=== PATIENT | male | born 1990 | race Caucasian/White ===

== ENCOUNTER 2016-11-17 13:43 | Emergency (ER) | payer MEDICAID ==
[2016-11-17 13:59] VITALS: BP 115/72; PULSE 95; RESP 18; TEMP 98.8; O2SAT 99
[2016-11-17] MEDS ORDERED: Bacitracin 500 Units/gm Oint Foilpak UD TOP ONE (14:14)
[2016-11-17] MEDS ORDERED: Bacitracin 500 Units/gm Oint Foilpak UD ONE ×2 (14:32→14:41)
[2016-11-17] MEDS ORDERED: Amoxicillin-Clav 875-125 mg Tab PO STA (14:33)
[2016-11-17] MEDS ORDERED: Amoxicillin-Clav 875-125 mg Tab PO ONE (14:44)
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
== END 2016-11-17 15:45 | disposition home or self-care (01) ==
LOC: C.ER 13:43
DX: S01.01XA Laceration without foreign body of scalp, initial encounter (principal); Y04.0XXA Assault by unarmed brawl or fight, initial encounter; S21.151A Open bite of right front wall of thorax without penetration into thoracic cavity, initial encounter; Y04.1XXA Assault by human bite, initial encounter
CPT/HCPCS: 12001; 90471; 90715; 96372; 99284; J1885

== ENCOUNTER 2017-01-29 16:33 | Emergency (ER) | payer MEDICAID ==
[2017-01-29 16:40] VITALS: BP 115/63; PULSE 76; RESP 18; TEMP 98.2; O2SAT 98
[2017-01-29] MEDS ORDERED: Tmp-Smz 800 mg-160 mg DS Tab PO STA (17:32)
[2017-01-29] MEDS ORDERED: Tmp-Smz 800 mg-160 mg DS Tab ONE (17:36)
--- NOTE | 2017-01-29 18:03 | C.PDOC ---
History Of Present Illness 26 year old male presents to the ED with complaints of left middle mcguire swelling around the nail for three days. Patient reports he pulled his cuticle and had swelling and pain beginning soon after. He took ibuprofen for pain. Patient denies fever, numbness, or tingling of the left middle finger. Chief Complaint (Nursing): Finger,Hand,&Wrist History Per: Patient History/Exam Limitations: no limitations Onset/Duration Of Symptoms: Days (3 days ) Current Symptoms Are (Timing): Still Present Quality: "Pain" Exacerbating Factor(s): Nothing Recent travel outside of the [place]: No Past Medical History Reviewed: Historical Data, Nursing Documentation, Vital Signs Vital Signs: Last Vital Signs Temp 98.2 F 01/29/17 16:37 Pulse 76 01/29/17 16:37 Resp 18 01/29/17 16:37 BP 115/63 01/29/17 16:37 Pulse Ox 98 01/29/17 19:04 Family History: States: Unknown Family Hx - Social History Hx Tobacco Use: No Hx Alcohol Use: No Hx Substance Use: Yes - Immunization History Hx Tetanus Toxoid Vaccination: No Hx Influenza Vaccination: No Hx Pneumococcal Vaccination: No Review Of Systems Constitutional: Negative for: Fever Musculoskeletal: Positive for: Hand Pain (left middle finger swelling and pain ) Neurological: Negative for: Weakness, Numbness Physical Exam - Physical Exam Appears: Non-toxic, No Acute Distress Skin: Warm, Dry Head: Atraumatic, Normacephalic Extremity: Normal ROM, Capillary Refill (good capillary refill, less than two seconds ), Other (mild paronychia to the left third digit) Pulses: Left Radial: Normal, Right Radial: Normal Neurological/Psych: Oriented x3 ED Course And Treatment O2 Sat by Pulse Oximetry: 98 (RA) Progress Note: Patient was given Keflex, Motrin, and Bactrim was applied. Patient was given follow up instructions. Disposition - Disposition Referrals: [facility] [Outside] [facility] at [facility] [Outside] Disposition: HOME/ ROUTINE Disposition Time: 17:35 Condition: GOOD Additional Instructions: Thank you for letting us take care of you today. Your provider was Dr. Funez. You were treated for paronychia. The emergency medical care you received today was directed at your acute symptoms. If you were prescribed any medication, please fill it and take as directed. It may take several days for your symptoms to resolve. Return to the Emergency Department if your symptoms worsen, do not improve, or if you have any other problems. Please contact your doctor or call one of the physicians/clinics you have been referred to that are listed on the Patient Visit Information form that is included in your discharge packet. Bring any paperwork you were given at discharge with you along with any medications you are taking to your follow up visit. Our treatment cannot replace ongoing medical care by a primary care provider (PCP) outside of the emergency department. Thank you for allowing the [facility] team to be part of your care today. Follow up with your doctor or our clinic in 3-4 days for re-evaluation and further management. Prescriptions: Cephalexin [cephalexin] 500 mg PO Q8 #21 cap Ibuprofen [Motrin] 600 mg PO Q6 PRN #20 tab PRN Reason: Pain, Moderate (4-7) Sulfamethoxazole/Trimethoprim [Bactrim DS 800 mg-160 mg] 1 tab PO BID #14 tab Instructions: Paronychia (ED) Forms: [employer] (Wallisian), Work Excuse - Clinical Impression Clinical Impression: Paronychia - Scribe Statement The provider has reviewed the documentation as recorded by the Scribe Kenna Montes All medical record entries made by the Scribe were at my direction and personally dictated by me. I have reviewed the chart and agree that the record accurately reflects my personal performance of the history, physical exam, medical decision making, and the department course for this patient. I have also personally directed, reviewed, and agree with the discharge instructions and disposition.
== END 2017-01-29 17:47 | disposition home or self-care (01) ==
LOC: C.ER 16:33
DX: L03.012 Cellulitis of left finger (principal)

== ENCOUNTER 2017-04-09 12:41 | Emergency (ER) | payer MEDICAID ==
[2017-04-09 13:20] VITALS: O2SAT 97
[2017-04-09] MEDS ORDERED: Naproxen 550 mg Tab PO STA (14:14)
--- NOTE | 2017-04-09 14:16 | C.PDOC ---
History Of Present Illness 26 y/o male presents to ED with complaints of left knee pain for 3 days worse. Pain aggravate by ambulation and movement. Patient reports not taking pain medication. Denies trauma, swelling, weakness, numbness or any other complaints at this time. Time Seen by Provider: 04/09/17 13:21 Chief Complaint (Nursing): Lower Extremity Problem/Injury History Per: Patient History/Exam Limitations: no limitations Onset/Duration Of Symptoms: Days Current Symptoms Are (Timing): Still Present Past Medical History Reviewed: Historical Data, Nursing Documentation, Vital Signs Vital Signs: Last Vital Signs Temp 98.6 F 04/09/17 14:46 Pulse 79 04/09/17 14:46 Resp 18 04/09/17 14:46 BP 119/73 04/09/17 14:46 Pulse Ox 97 04/09/17 16:05 Surgical History: No Surg Hx Family History: States: No Known Family Hx - Social History Hx Tobacco Use: No Hx Alcohol Use: Yes Hx Substance Use: No - Immunization History Hx Tetanus Toxoid Vaccination: No Hx Influenza Vaccination: No Hx Pneumococcal Vaccination: No Review Of Systems Gastrointestinal: Negative for: Nausea, Vomiting Musculoskeletal: Positive for: Leg Pain. Negative for: Back Pain, Foot Pain Skin: Negative for: Rash, Bruising Neurological: Negative for: Weakness, Numbness Physical Exam - Physical Exam Appears: Non-toxic, No Acute Distress Skin: Warm, Dry, No Rash Head: Atraumatic, Normacephalic Eye(s): bilateral: Normal Inspection, EOMI Nose: Normal Oral Mucosa: Moist Neck: Normal, Normal ROM, Supple Chest: Symmetrical Respiratory: No Accessory Muscle Use Extremity: Normal ROM, Tenderness (to medial knee), No Pedal Edema, No Calf Tenderness, No Deformity, No Swelling Extremity: Bilateral: Normal ROM Pulses: Left Dorsalis Pedis: Normal, Right Dorsalis Pedis: Normal Neurological/Psych: Oriented x3, Normal Motor, Normal Sensation ED Course And Treatment O2 Sat by Pulse Oximetry: 97 (RA) Pulse Ox Interpretation: Normal Progress Note: Patient offered xray and decline, states he has appointment with PMD on 04/14/17. knee brace applied by redeye gunner. Naprosen given. Patient advised RICE and follow up with ortho in 1-2 days. Disposition - Disposition Referrals: Godfrey Garcia MD [Staff Provider] - Disposition: HOME/ ROUTINE Disposition Time: 14:14 Condition: STABLE Additional Instructions: Rest, ice and elevate the area. Follow up with your doctor as scheduled. Return to ER if symptoms persist or worsen. Prescriptions: Naproxen [Naprosyn] 1 tab PO BID PRN #20 tab PRN Reason: Pain Instructions: Knee Pain (ED) Forms: [employer] [facility] (Estonian) - Clinical Impression Clinical Impression: Knee pain - PA / [employer]ACHINE [employer] / Resident Statement MD/DO has reviewed & agrees with the documentation as recorded. - Scribe Statement The provider has reviewed the documentation as recorded by the Sonyaibedwin Urbina All medical record entries made by the Josey were at my direction and personally dictated by me. I have reviewed the chart and agree that the record accurately reflects my personal performance of the history, physical exam, medical decision making, and the department course for this patient. I have also personally directed, reviewed, and agree with the discharge instructions and disposition.
[2017-04-09] MEDS ORDERED: Naproxen 550 mg Tab PO ONE (14:37)
[2017-04-09 14:48] VITALS: BP 119/73; PULSE 79; RESP 18; TEMP 98.6
== END 2017-04-09 14:56 | disposition home or self-care (01) ==
LOC: C.ER 12:41
DX: M25.562 Pain in left knee (principal)